=== PATIENT | female | born 2000 | race Two or more races ===

== ENCOUNTER 2025-08-04 13:17 | Inpatient (IN) | payer OTHER ==
[~2025-08-04] VITALS: Ht 149.9 cm; Wt 98.0 kg
[2025-08-17] MEDS ORDERED: PRENATABS RX T1 EACH PO (21:04)
[2025-08-18] VITALS (9 sets, daily range): BP systolic 94–126; BP diastolic 64–80
[2025-08-18] MEDS ORDERED: OXYTOCIN 500 ML IV SCH (11:15)
[2025-08-18] MEDS ORDERED: MORPHINE SULFATE 4 MG/ML VIAL IV PRN ×2 (14:00→16:00)
[2025-08-18] MEDS ORDERED: OXYTOCIN 1,000 ML IV SCH ×2 (16:00→19:45)
[2025-08-18] MEDS ORDERED: CHLORHEXIDINE GLUCONATE 120 ML BOTTLE TP SCH (19:45)
[2025-08-18] MEDS ORDERED: ACETAMINOPHEN WITH CODEINE 1 UDTAB TABLET PO PRN (19:45)
[2025-08-18] MEDS ORDERED: NALOXONE HCL 0.4 MG/ML AMPUL IM ONE (20:15)
[2025-08-19 01:40] VITALS: BP 123/50
[2025-08-19 08:00] VITALS: BP 103/66
[2025-08-19 09:32] LABS: BASO % 0.1 % (0.1-1.2); EOS # 0.03 (0.04-0.54); EOS % 0.2 % (0.7-7.0); LYMPH # 1.52 (1.18-3.74); LYMPH % 8.5 % (19.3-53.1); MEAN PLATELET VOLUME 13.70 fl (9.4-12.4); MONO # 1.10 (0.24-0.82); MONO % 6.1 % (4.7-12.5); NEUT # 15.15 (1.56-6.13); NEUT % 84.7 % (34.0-71.1); RED CELL DISTRIBUTION WIDTH 14.6 % (11.6-14.4)
[2025-08-19 16:24] VITALS: BP 118/81
[2025-08-20 01:18] VITALS: BP 109/71
[2025-08-20] MEDS ORDERED: OxyCODONE HCL 5 MG TABLET (ROXICODONE) PO PRN (06:00)
[2025-08-20 08:34] VITALS: BP 100/69
== END 2025-08-20 13:05 | disposition home or self-care (01) | DRG 807 ==
LOC: OB/GYN → LDR 08-18 08:36 → OB/GYN 08-18 20:24
PROVIDERS: Obstetrics & Gynecology; ADMIT Obstetrics & Gynecology Gynecology; ATTEND Obstetrics & Gynecology Gynecology
PROC: 10E0XZZ Delivery of Products of Conception, External Approach (ICD-10-PCS; principal; 2025-08-18)
PROC: 0HQ9XZZ Repair Perineum Skin, External Approach (ICD-10-PCS; 2025-08-18)
PROC: 4A1HXCZ Monitoring of Products of Conception, Cardiac Rate, External Approach (ICD-10-PCS; 2025-08-18)
DX: O70.1 Second degree perineal laceration during delivery (principal); O69.81X0 Labor and delivery complicated by cord around neck, without compression, not applicable or unspecified; Z37.0 Single live birth; Z3A.39 39 weeks gestation of pregnancy

== ENCOUNTER 2025-08-11 10:46 | Outpatient (CLI) | payer OTHER | END 2025-08-11 11:47 | disposition home or self-care (01) | LOC: NST 10:46 | PROVIDERS: ATTEND Obstetrics & Gynecology Gynecology | DX: Z34.83 Encounter for supervision of other normal pregnancy, third trimester (principal) ==